=== PATIENT | female | born 1970 | race Caucasian/White ===

== ENCOUNTER 2022-09-17 09:01 | Emergency (ER) | payer BC, SELFPAY ==
--- NOTE | 2022-09-17 09:01 | ECG_ITS ---
APPROVED REPORT Exam: Resting ECG HR:113 bpm ECG Measurements Heart Rate 113 AXES SD 126 P 55 QRSd 94 QRS -31 QT 312 T 40 QTc 379 Conclusion SINUS TACHYCARDIA INDETERMINATE AXIS ABNORMAL ECG UNCONFIRMED REPORT Electronically signed by : Jeff Hunter MD 09/19/2022 13:31:28
[2022-09-17 09:05] VITALS: BP 135/77; PULSE 113; RESP 18; TEMP 36.9; O2SAT 100; BMI 31.9
--- NOTE | 2022-09-17 09:13 | XR_ITS ---
FINAL REPORT CLINICAL HISTORY: SOA FINDINGS: SINGLE-VIEW CHEST The heart size is normal. The mediastinum is normal. The lungs are clear. There is no pneumothorax. IMPRESSION: No acute cardiopulmonary process. Reviewed, Interpreted and Dictated by Rory Zhang III, MD Transcribed by Yanelis Vaz Authenticated and [facility]
--- NOTE | 2022-09-17 09:26 | PC.NURSE ---
Radiology at bedside.
[2022-09-17 09:28] LABS: Basophils # 0.1 K/mm3 (0-0.2); Basophils % 0.9 % (0.1-2.0); Eosinophils # 0.4 K/mm3 (0.0-0.4); Eosinophils % 2.9 % (0.1-12.0); Hematocrit 51.9 % (37.0-47.0); Hemoglobin 16.3 g/dL (12.2-16.2); Lymphocytes # 1.9 K/mm3 (0.7-4.5); Lymphocytes % 12.4 % (10-50); Mean Corpuscular HGB Conc 31.3 g/dL (31.8-35.4); Mean Corpuscular Hemoglobin 29.8 pg (27.0-31.2); Mean Corpuscular Volume 95.1 fl (81-99); Mean Platelet Volume 8.5 fl (7.4-10.4); Monocytes # 0.7 K/mm3 (0.1-1.0); Monocytes % 4.3 % (1.7-9.3); Neutrophils # 12.2 K/mm3 (1.8-7.8); Neutrophils % 79.6 % (37.0-80.0); Platelet Count 239 K/mm3 (142-424); Red Blood Count 5.46 M/mm3 (4.20-5.40); Red Cell Distribution Width 13.1 % (11.5-17.5); White Blood Count 15.3 K/mm3 (4.8-10.8)
[2022-09-17 09:31] LABS: MANUAL DIFFERENTIAL MANUAL DIFFERENTIAL (MANUAL DIFF)
--- NOTE | 2022-09-17 09:31 | HMH.EDGENADL ---
Discharge Plan Disposition Patient Disposition: Home, Self-Care Condition: Good Referrals Follow up/Referrals: Joey Hutson [Referring] - See instructions Activity Restrictions/Add. Instructions Additional Instructions/Restrictions: You were evaluated in the emergency department today. Please make sure that you stay orally hydrated at home. Take Tylenol and Motrin at home as needed for pain. Follow-up with your primary care provider over the next 48 hours. Return to the emergency department for any new or worsening symptoms. Clinical Impressions Clinical Impression: Acute dehydration, Palpitations Stand Alone Forms Stand Alone Forms: Work/School Release Instructions Patient Instructions: DI for Atypical Chest Pain, DI for Palpitations Discharge ED Provider: Dalia Egan General Adult HPI General Chief complaint: Chest Pain Stated complaint: cp Time Seen by Provider: 09/17/22 09:13 History of Present Illness HPI narrative: This patient is a 52-year-old female with history of fibromyalgia and tachycardia presenting to the emergency department for evaluation of high heart rate, chest pressure, and shortness of breath. She states that this started this morning. She states that she had been ill over the weekend, with fever, cough, congestion, vomiting, and diarrhea. Emesis was nonbloody nonbilious, and diarrhea was nonbloody. She states that those things have since improved, and yesterday she was feeling better. She has not had any recent fevers. She was going to go back to work today, when she noted that she felt extremely short of breath with any exertion. She states that she checked her heart rate and noted that it was in the 150s at home. She states that she was previously on medications for tachycardia, however she is not currently. She states that it feels like she has been punched in the chest up near her clavicles. She denies any other concerns at this time. Related Data Allergies Allergy/AdvReac Type Severity Reaction Status Date / Time guaifenesin Allergy Verified 09/17/22 09:27 latex Allergy Verified 09/17/22 09:27 [facility] Social History Smoking Status: Never smoker alcohol intake: never current occupational status: previously employed Travel in the last 8 weeks: None ROS Obtained: Yes All systems reviewed & no additional complaints except as documented 14 point review of systems obtained and negative except otherwise mentioned in HPI. Physical Exam General General appearance: alert and in no apparent distress Head Head exam: atraumatic and normocephalic Eye Eye exam: Present normal appearance, PERRL and EOMI ENT ENT exam: Present normal exam and normal oropharynx Neck Neck exam: Present normal inspection and full ROM Chest Chest inspection: Present normal inspection and symmetric chest wall rise Respiratory Respiratory exam: Present normal lung sounds bilaterally; Absent respiratory distress or wheezes Cardiovascular Cardiovascular exam: Present normal rhythm and tachycardia Abdominal Exam Abdominal exam: Present soft; Absent distention, tenderness or guarding Extremities Exam Extremities exam: Present normal inspection Back Exam Back exam: Present normal inspection and full ROM Neurological Exam Neurological exam: Present alert and oriented X3 Psychiatric Psychiatric exam: Present normal affect Skin Skin exam: Present warm and dry Medical Decision Making Justo Inquiry Pt receiving controlled substance: No Vital Signs: 09/17/22 09:05 09/17/22 10:00 09/17/22 10:30 Temperature 98.5 F Temperature Source Oral Pulse Rate 100 H 100 H Pulse Rate [Left Radial] 113 H Respiratory Rate 18 18 20 Blood Pressure 133/79 126/77 Blood Pressure [Right Arm] 135/77 Blood Pressure Mean 89 97 Blood Pressure Mean [Right Arm] 96 Blood Pressure Source Blood Pressure Position 02 Sat by Pulse Oximetry 100
[2022-09-17 09:40] LABS: Alanine Aminotransferase 54 U/L (12-78); Albumin Level 4.4 g/dl (3.5-5.0); Alkaline Phosphatase 159 U/L (38-126); Anion Gap 16.7 mEq/L (5-15); Aspartate Amino Transferase 54 U/L (14-36); Bilirubin,Direct 0.2 mg/dl (0.0-0.4); Bilirubin,Indirect 0.6 mg/dL (0.0-0.9); Bilirubin,Total 0.8 mg/dl (0.2-1.3); Bilirubin,Unconjugated 0.5 mg/dL (0.0-1.1); Blood Urea Nitrogen 15 mg/dl (7-17); Calcium 9.6 mg/dl (8.4-10.2); Carbon Dioxide 27 mmol/L (22.0-30.0); Chloride 98 mmol/L (98-107); Eosinophils % 1 % (0-3); Estimated Glomerular Filt Rate 66 ml/min (>60); GFR (African American) 80 ML/MIN (>60); Glucose 83 mg/dl (74-100); Lipase 40 U/L (23-300); Lymphocytes % 15 % (10-50); Magnesium 1.8 mg/dl (1.6-2.3); Monocytes % 8 % (2-9); Neutrophils % 76 % (42-76); Potassium 3.7 mmoL/L (3.5-5.1); Sodium 138 mmol/L (136-145); Total Cells Counted 100; Total Protein,Serum 7.3 g/dl (6.3-8.2)
[2022-09-17 09:41] LABS: Platelet Estimate Normal; RBC Morphology Normal
--- NOTE | 2022-09-17 09:45 | PC.NURSE ---
Provided pt with 2 warm blankets.
[2022-09-17 09:49] LABS: D-Dimer 0.84 ug/mL (0.0-0.5)
[2022-09-17 10:00] VITALS: BP 133/79; PULSE 100; RESP 18; O2SAT 99
[2022-09-17 10:04] LABS: Troponin I < 0.01 ng/ml (0.00-0.034)
[2022-09-17 10:11] LABS: Thyroid Stimulating Hormone 3.53 uIU/mL (0.465-4.68)
--- NOTE | 2022-09-17 10:14 | PC.NURSE ---
Assisted patient to restroom
[2022-09-17 10:30] VITALS: BP 126/77; PULSE 100; RESP 20; O2SAT 99
--- NOTE | 2022-09-17 10:32 | PC.NURSE ---
initial IV dislodged prior to CT. CT staff called for new IV placement for scan. 20G u/s guided IV started in CT. IV site flushed and gave good blood return. IV site flushed by CT staff and confirmed patency. @1040 CT staff called and states IV infiltrated while administering contrast. pt denies pain. warm compress applied to arm and IV was d/c.
--- NOTE | 2022-09-17 12:03 | PC.NURSE ---
pt refuses blood sticks. MD aware. additional lab orders cancelled.
--- NOTE | 2022-09-17 13:09 | CT_ITS ---
FINAL REPORT TECHNIQUE: Axial images were obtained from the lung apex to the mid abdomen by computed tomography. Coronal reformatted images were obtained. This study was performed with techniques to keep radiation doses as low as reasonably achievable, (ALARA). Individualized dose reduction techniques using automated exposure control or adjustment of mA and/or kV according to the patient''s size were employed. CLINICAL HISTORY: SOA, concern for effusion on CXR FINDINGS: There is no axillary adenopathy. There is no hilar or mediastinal adenopathy. Heart size is normal. There is no pericardial or pleural effusion. Limited images of the upper abdomen demonstrate postoperative changes from cholecystectomy.. No suspicious infiltrate or nodule is identified. There are several calcified granulomas in the left lung. IMPRESSION: No acute process. Reviewed, Interpreted and Dictated by Rory Zhang III, MD Transcribed by Yoly Randhawa Authenticated and [facility]
--- NOTE | 2022-09-17 13:10 | PC.NURSE ---
CHRISTINE ROUNDED NO NEEDS AT THIS TIME
[2022-09-17 13:45] LABS: Erythrocyte Sedimentation Rate 1 mm/hr (0-30)
[2022-09-17 13:47] VITALS: BP 129/78; PULSE 95; RESP 14; O2SAT 99
[2022-09-17 14:15] VITALS: BP 120/69; PULSE 100; RESP 10; O2SAT 97
[2022-09-17 16:12] VITALS: BP 113/69; PULSE 103; RESP 20; TEMP 37.3; O2SAT 98
== END 2022-09-17 16:13 | disposition home or self-care (01) ==
PROVIDERS: Emergency Provider Emergency Medicine; PCP Family Medicine
DX: R07.9 Chest pain, unspecified (principal); R06.02 Shortness of breath; R00.0 Tachycardia, unspecified; R19.7 Diarrhea, unspecified; R50.9 Fever, unspecified; E86.0 Dehydration; R05.9 Cough, unspecified; D72.829 Elevated white blood cell count, unspecified; R11.2 Nausea with vomiting, unspecified; M79.7 Fibromyalgia; Z91.040 Latex allergy status; Z88.8 Allergy status to other drugs, medicaments and biological substances
CPT/HCPCS: 71045; 71250; 80048; 80076; 83690; 83735; 84439; 84443; 84484; 85007; 85025; 85378; 85651; 93005; 96360; 99285